=== PATIENT | female | born 1950 | race Caucasian/White ===

== ENCOUNTER 2017-10-10 18:37 | Emergency (ER) | payer OTHER, MEDICARE ==
[~2017-10-10] VITALS: Ht 167.6 cm; Wt 61.2 kg
[~2017-10-10 18:37] MED LIST: AZITHROMYCIN250 MG PO; LEXAPRO5 MG PO; METOPROLOL TART25 MG PO; NORCO 5-325 TA1 EACH PO; TESSALON PERLE100 MG PO; ZESTRIL10 MG PO
== END 2017-10-10 21:30 | disposition home or self-care (01) ==
LOC: ER 18:37
DX: J30.1 Allergic rhinitis due to pollen (principal); J44.9 Chronic obstructive pulmonary disease, unspecified; Z86.73 Personal history of transient ischemic attack (TIA), and cerebral infarction without residual deficits
CPT/HCPCS: 99281